=== PATIENT | female | born 1965 | race Caucasian/White ===

== ENCOUNTER 2024-09-12 14:30 | Outpatient (AMB) | payer OTHER, SELFPAY ==
--- OUTSIDE RECORDS SUMMARY | 2024-09-12 14:34 | XMS_ITS | Clinical Summary ---
Author Organization [facility] Address [address] [place] [address] Care Team Providers Care Welfare Specialist Name Role Phone Kamlesh Smith MD Primary Care Provider Unavailab le Allergies Active Allergy Reactions Criticality Noted Date Comments Codeine 10/23/2015 Hydrocodone-Acetaminophen 10/23/2015 Oxycodone-Acetaminophen 09/10/2015 Other reaction(s): itching, Unknown Medications Medication Sig Dispensed Refills Start Date End Date Status albuterol 108 (90 Base) MCG/ACT inhaler Inhale 1 puff into the lungs. 0 02/01/2022 Active aspirin (Aspirin Adult Low Dose) 81 MG EC tablet 1 tablet 0 02/01/2022 Active cloNIDine (CATAPRES) tablet 0.1 mg 1 tablet 0 09/01/2021 Active DULoxetine (CYMBALTA) DR capsule 30 mg Take 1 capsule (30 mg total) by mouth daily. 0 01/27/2022 Active empagliflozin (Jardiance) 10 MG tablet 1 tablet 0 Active fluticasone (FLONASE) 50 MCG/ACT nasal spray spray or apply 1 spray inside Nose. 0 02/01/2022 Active gabapentin (NEURONTIN) 300 MG capsule 1 tablet 0 Active levothyroxine (SYNTHROID) tablet 200 mcg 1 tablet in the morning on an empty stomach 0 10/06/2021 Active LORazepam (ATIVAN) 0.5 MG tablet 1 tablet at bedtime as needed 0 Active losartan (COZAAR) 100 MG tablet 1 tablet 0 02/01/2022 Active metFORMIN (GLUCOPHAGE) tablet 500 mg 1 tablet with a meal 0 02/04/2021 Active metoprolol succinate (TOPROL-XL) 24 hr tablet 100 mg 1 tablet 0 02/01/2022 Active Multiple Vitamin (Multivitamin) TABS Take 1 tablet by mouth daily. 0 01/31/2022 Active omeprazole (PriLOSEC) 40 MG capsule 1 capsule 30 minutes before morning meal 0 Active phentermine 15 MG capsule 1 capsule 0 03/10/2021 Active Semaglutide, 1 MG/DOSE, (Ozempic, 1 MG/DOSE,) 4 MG/3ML SOPN INJECT 1MG ONCE A WEEK 0 Active azelastine (OPTIVAR) 0.05 % ophthalmic solution Place 1 drop into both eyes 2 (two) times a day. 0 08/31/2022 Active fluticasone (FLONASE) 50 MCG/ACT nasal spray spray or apply 1 spray inside Nose. 0 08/31/2022 Active tirzepatide (Mounjaro) 2.5mg injection pen (SAMPLE) Inject 0.5 mL (2.5 mg total) under the skin. 0 Active Active Problems Problem Noted Date Diagnosed Date Microcytic anemia 02/04/2022 Social History Tobacco Use Types Packs/Day Years Used Date Smoking Tobacco: Some Days Smokeless Tobacco: Never Alcohol Use Standard Drinks/Week Comments Yes 0 (1 standard drink = 0.6 oz pur e alcohol) Social Sex and Gender Information Value Date Recorded Sex Assigned at Female 02/16/2022 3:02 PM EDT Gender Identity Not on file Sexual Orientation Not on file Job Start Date Occupation Industry Not on file Not on file Not on file Last Filed Vital Signs Vital Sign Reading Time Taken Comments Blood Pressure 146/84 07/24/2023 11:32 AM EDT Pulse 80 07/24/2023 11:32 AM EDT Temperature 36.7 ??C (98.1 ??F) 07/24/2023 11:32 AM E DT Respiratory Rate 20 11/04/2022 9:49 AM EDT Oxygen Saturation 98% 07/24/2023 11:32 AM EDT Inhaled Oxygen Concentration - - Weight 89.4 kg (197 lb) 07/24/2023 11:32 AM EDT Height - - Body Mass Index - - Plan of Treatment Health Maintenance Due Date Last Done Comments Hepatitis B Vaccines (1 of 3 - 3-dose series) 1966 Hepatitis C Screening 1966 COVID-19 Vaccine (#1) 04/20/1967 Depression Screening 1978 Preventative Health Evaluation 1984 Tobacco Cessation Counseling 1984 Cervical Cancer Screening (Pap Smear) 10/20/1987 Colon Cancer Screening (Colonoscopy) 10/20/2011 Breast Cancer Screening (Mammogram) 2016 Shingrix-Zoster Vaccine (1 o f 2) 2016 Pneumococcal Vaccine (2 of 2 - PCV) 02/18/2018 02/18/2017, 07/17/2012 Influenza Vaccine (#1) 2023 9, 02/18/2017, 01/15/2010 DTap / Tdap / Td (2 - Td or Tdap) 09/09/2025 09/10/2015 RSV Ped < 20 months Aged Out No longe r eligible based on patient's age to complete this topic Care Teams Welfare Specialist Relationship Specialty Start Date End Date Kamlesh Smith MD PCP - General Internal Medicine 01/21/22
--- NOTE | 2024-09-12 14:55 | HO.NEPHOV ---
Vital Signs 09/12/24 15:02 Height 5 ft Weight 137 lb BMI 26.8 BP 130/80 Blood Pressure Location Lt brachial Position Sitting Pulse 81 Pulse Source Pulse Oximeter Pulse Oximetry (%) 100 Oxygen Delivery Method Room Air Intake Visit Reasons: ENP: Accelerated Hypertension-Conf Digital Data Analyst Required: No Accompanied by: Self / Same As Patient Allergies acetaminophen [Percocet] Allergy (Unknown, Verified 09/12/24 15:02) Unknown codeine Allergy (Unknown, Verified 09/12/24 15:02) Unknown hydrocodone Allergy (Unknown, Verified 09/12/24 15:02) Unknown oxycodone [Percocet] Allergy (Unknown, Verified 09/12/24 15:02) Unknown Seasonal Allergies Allergy (Unknown, Verified 09/12/24 15:02) Unknown HPI Comments Details: I had the privilege of seeing Johanna in consultation for labile hypertension. She has been hypertensive for a long time and is on multiple anti hypertensive medications for some time which was recently changed again for better BP control. She is not a diabetic and denies having CAD, CKD, carotid stenosis, CHF, CVA or PAD. She denies MICKY, hypokalemia, uncontrolled thyroid disorders or hypercalcemia. She denies taking excess sodium in the diet or excess NSAID's. She does not have any palpitations or orthostatic symptoms. She claims to be compliant with medications. She does not monitor her BP closely at home. She has strong family H/O hypertension. [facility] Medical History (Updated 09/12/24 @ 15:16 by Lew Johns MD) Degenerative joint disease Seasonal allergies Asthma Depression Arthritis Anxiety Hyperlipidemia Hypothyroidism Hypertension Bipolar disorder Type 2 diabetes mellitus without complication Nausea & vomiting Microcytic anemia Palpitations Surgical History Hx of tubal ligation H/O reduction mammoplasty H/O abdominal surgery Family History Mother Diabetes Hypertension Hyperlipidemia Thyroid disease Social History (Updated 09/12/24 @ 14:56 by Josefina Kenny MA) Alcohol intake: current Comment: Socially Patient Tobacco Use Status: Current someday Tobacco user Review of Systems Const All systems reviewed & are unremarkable except as noted in HPI and below Physical Exam Vital Signs: Last Vital Signs Pulse 81 09/12/24 15:02 BP 130/80 09/12/24 15:02 Pulse Ox 100 09/12/24 15:02 Oxygen Delivery Method Room Air 09/12/24 15:02 BMI result Body Mass Index 26.8 Const General: comfortable and no acute distress Orientation/consciousness: patient oriented x3 HEENT Head: Yes normocephalic Mouth: Normal oral and palatal mucosa present Eyes EOM: EOMs intact bilaterally Neck Neck: Yes supple Resp Auscultation: clear to auscultation bilaterally Cardio Jugular venous distension: no JVD Rate: regular rate GI Palpation (GI): Soft to palpation Auscultation: normal bowel sounds General: Yes no CVA tenderness Back/Spine/Pelvis Back: no CVA tenderness Skin General skin exam: no rashes or lesions noted Neuro General: patient oriented x3 and moves all extremities Extrem General: Yes no pedal edema Results Reviewed Nephrology Results: No Data to Display Assessment & Plan Assessment & Plan (1) Labile hypertension: Code(s): R09.89 - Other specified symptoms and signs involving the circulatory and respiratory systems Category: Medical Plan Low sodium diet; Good hydration; Minimize NSAID's 24 hour Ambulatory blood pressure ordered Renin, Aldosterone, cortisol and metanephrines ordered Doppler of renal arteries ordered; C/W current medn for now No proteinuria, retinopathy, LVH or known renal dysfunction All these were explained in detail; Further management is pending data Orders: Orders AMB 24 HR B/P Monitor PLACEMENT Today R0 - Other specified symptoms and signs involving the circulatory and respiratory systems Aldost/Renin Today R0. - Other specified symptoms and signs involving the circulatory and respiratory systems Creatinine Today R09. - Other specified symptoms and signs involving the circulatory and respiratory systems Electrolytes Today R0. - Other specified symptoms and signs involving the circulatory and respiratory systems US renal doppler 2 Weeks R0. - Other specified symptoms and signs involving the circulatory and respiratory systems Renin Today R09. - Other specified symptoms and signs involving the circulatory and respiratory systems Aldosterone Today R09. - Other specified symptoms and signs involving the circulatory and respiratory systems Cortisol Random Today R0. - Other specified symptoms and signs involving the circulatory and respiratory systems Protein Creatinine Ratio, Ur Today R09. - Other specified symptoms and signs involving the circulatory and respiratory systems Blood Urea Nitrogen Today R09. - Other specified symptoms and signs involving the circulatory and respiratory systems US renal BI 2 Weeks R09.89 - Other specified symptoms and signs involving the circulatory and respiratory systems Metanephrines, Plasma Today R09.89 - Other specified symptoms and signs involving the circulatory and respiratory systems Coding Level of Care Code New Pt Level 4 (14912) Diagnoses Labile hypertension R09.89
[2024-09-12 15:02] VITALS: BP 130/80; PULSE 81; O2SAT 100; BMI 26.8
== END 2024-09-12 15:27 | disposition home or self-care (01) ==
LOC: HO.HKAS 14:31
PROVIDERS: PCP Internal Medicine; Visit Provider Internal Medicine Nephrology
DX: R09.89 Other specified symptoms and signs involving the circulatory and respiratory systems (principal)
CPT/HCPCS: 99204

== ENCOUNTER → 2024-09-12 14:30 | Outpatient (BNVA) | payer OTHER, SELFPAY | PROVIDERS: PCP Internal Medicine; Visit Provider Internal Medicine Nephrology | DX: I10 Essential (primary) hypertension (principal); Z79.899 Other long term (current) drug therapy | CPT/HCPCS: 99202 ==

== ENCOUNTER 2024-10-15 11:20 | Outpatient (REF) | payer OTHER, SELFPAY ==
[2024-10-15 18:55] LABS: Anion Gap 13 (12-20); Blood Urea Nitrogen 15 mg/dL (9-16); Carbon Dioxide 20 mmol/L (22-29); Chloride 114 mmol/L (96-108); Estimated Glomerular Filt Rate 46; Potassium 4.3 mmol/L (3.3-5.1); Sodium 143 mmol/L (135-145)
[2024-10-15 19:12] LABS: Creatinine Urine 69.02 mg/dL; Total Protein Urine Random < 7 mg/dL (<12)
[2024-10-15 19:15] LABS: Cortisol Random 6.5 ug/dL
[2024-10-28 01:08] LABS: Aldosterone/Renin Ratio 5.3 Ratio (0.9-28.9); Plasma Renin Activity 0.38 ng/mL/h (0.25-5.82)
== END 2024-10-15 11:21 | disposition home or self-care (01) ==
LOC: HO.HKASLDS 11:20
PROVIDERS: PCP Internal Medicine; Visit Provider Internal Medicine Nephrology
DX: R09.89 Other specified symptoms and signs involving the circulatory and respiratory systems (principal)
CPT/HCPCS: 36415; 80051; 82088; 82533; 82565; 82570; 84156; 84244; 84520

== ENCOUNTER → 2024-10-16 11:01 | Outpatient (BNVA) | payer OTHER, SELFPAY | PROVIDERS: PCP Internal Medicine; Visit Provider Internal Medicine Nephrology | DX: Z45.018 Encounter for adjustment and management of other part of cardiac pacemaker (principal) | CPT/HCPCS: 93786; 93788 ==

== ENCOUNTER 2024-11-07 13:08 | Outpatient (AMB) | payer OTHER, SELFPAY ==
--- NOTE | 2024-11-07 13:33 | HO.NEPHOV_ITS ---
Vital Signs 11/07/24 13:41 Height 5 ft Weight 148 lb 8 oz BMI 29.0 BP 168/98 H Blood Pressure Location Lt brachial Position Sitting Pulse 75 Pulse Source Pulse Oximeter Pulse Oximetry (%) 98 Oxygen Delivery Method Room Air Intake Visit Reasons: R/S 10/17/2024-Conf Client Manager Large Law Required: No Accompanied by: Self / Same As Patient Allergies acetaminophen (Percocet) Allergy (Unknown, Verified 11/07/24 13:41) Unknown codeine Allergy (Unknown, Verified 11/07/24 13:41) Unknown hydrocodone Allergy (Unknown, Verified 11/07/24 13:41) Unknown oxycodone (Percocet) Allergy (Unknown, Verified 11/07/24 13:41) Unknown Seasonal Allergies Allergy (Unknown, Verified 11/07/24 13:41) Unknown HPI Comments Details: I had the privilege of seeing Johanna in follow up for labile hypertension. She has been hypertensive for a long time and is on multiple anti hypertensive medications for some time which was recently changed again for better BP control. She is not a diabetic and denies having CAD, CKD, carotid stenosis, CHF, CVA or PAD. She denies MICKY, hypokalemia, uncontrolled thyroid disorders or hypercalcemia. She denies taking excess sodium in the diet or excess NSAID's. She does not have any palpitations or orthostatic symptoms. She claims to be compliant with medications. She does not monitor her BP closely at home. She has strong family H/O hypertension. [facility] Medical History (Updated 11/07/24 @ 13:37 by Lew Johns MD) Degenerative joint disease Seasonal allergies Asthma Depression Arthritis Anxiety Hyperlipidemia Hypothyroidism Hypertension Bipolar disorder Type 2 diabetes mellitus without complication Nausea & vomiting Microcytic anemia Palpitations Surgical History Hx of tubal ligation H/O reduction mammoplasty H/O abdominal surgery Family History Mother Diabetes Hypertension Hyperlipidemia Thyroid disease Social History (Updated 09/12/24 @ 14:56 by Josefina Kenny MA) Alcohol intake: current Comment: Socially Patient Tobacco Use Status: Current someday Tobacco user Review of Systems Const All systems reviewed & are unremarkable except as noted in HPI and below Physical Exam Const General: comfortable and no acute distress Orientation/consciousness: patient oriented x3 HEENT Head: Yes normocephalic Mouth: Normal oral and palatal mucosa present Eyes EOM: EOMs intact bilaterally Neck Neck: Yes supple Resp Auscultation: clear to auscultation bilaterally Cardio Jugular venous distension: no JVD Rate: regular rate GI Palpation (GI): Soft to palpation Auscultation: normal bowel sounds General: Yes no CVA tenderness Back/Spine/Pelvis Back: no CVA tenderness Skin General skin exam: no rashes or lesions noted Neuro General: patient oriented x3 and moves all extremities Extrem General: Yes pedal edema Results Reviewed Nephrology Results: Sodium, (135-145) 143 mmol/L 10/15/24 Potassium, (3.3-5.1) 4.3 mmol/L 10/15/24 Chloride, (96-108) 114 mmol/L H 10/15/24 Carbon Dioxide, (22-29) 20 mmol/L L 10/15/24 BUN, (9-16) 15 mg/dL 10/15/24 Creatinine, (0.5-1.4) 1.21 mg/dL 10/15/24 Urine Creatinine 69.02 mg/dL 10/15/24 Protein/Creatinin Ratio TNP 10/15/24 Assessment & Plan Assessment & Plan (1) Labile hypertension: Code(s): R09.89 - Other specified symptoms and signs involving the circulatory and r espiratory systems Category: Medical (2) CKD stage 3a, GFR 45-59 ml/min: Code(s): N18.31 - Chronic kidney disease, stage 3a Category: Medical Plan Low sodium diet; Good hydration; Minimize NSAID's 24 hour Ambulatory blood pressure reviewed Renin, Aldosterone, cortisol reviewed Doppler of renal arteries not done yet Discontinued Nebivilol; D/C ed Amlodipine Started Carvedilol 12.5 mg bid & Chlorthalidone 12.5 mg daily No proteinuria, retinopathy, LVH or known renal dysfunction All these were explained in detail; Further management is pending data Orders: Orders Creatinine 2 Weeks N18.31 - Chronic kidney disease, stage 3a, R09.89 - Other specified symptoms and signs involving the circulatory and respiratory systems Blood Urea Nitrogen 2 Weeks N18.31 - Chronic kidney disease, stage 3a, R09.89 - Other specified symptoms and signs involving the circulatory and respiratory systems TSH reflex Free T4 2 Weeks N18.31 - Chronic kidney disease, stage 3a, R09.89 - Other specified symptoms and signs involving the circulatory and respiratory systems Metanephrines, Plasma 2 Weeks N18.31 - Chronic kidney disease, stage 3a, R09.89 - Other specified symptoms and signs involving the circulatory and respiratory systems Electrolytes 2 Weeks N18.31 - Chronic kidney disease, stage 3a, R09.89 - Other specified symptoms and signs involving the circulatory and respiratory systems Medications: New carvedilol must administer with a meal/food 12.5 mg PO BID 180 tabs 3RF 90 days chlorthalidone 12.5 mg (1/2 x 25 mg) PO DAILY 45 tabs 3RF 90 days Coding Level of Care Code Est Pt Level 4 (50171) Diagnoses Labile hypertension R09.89 CKD stage 3a, GFR 45-59 ml/min N18.31
--- OUTSIDE RECORDS SUMMARY | 2024-11-07 13:38 | XMS_ITS | Encounter Summary ---
Author Organization [facility] Address [address] [place] [address] Care Team Providers Care [facility] Director Name Role Phone Unavailable Primary Care Provider Unavailabl e Encounter Details Date Type Department Care Team (Latest Contact Info) Description 06/26/2018 Abstract C CONVERSIONS Dental, Provider, DDS Social History Tobacco Use Types Packs/Day Years Used Date Smoking Tobacco: Never Assessed Comments Unknown Sex and Gender Information Value Date Recorded Sex Assigned at Female 02/21/2022 10:30 AM EDT Legal Sex Female 10:30 AM EDT Gender Identity Female 02/21/2022 10:30 AM EDT Sexual Orientation Straight 02/21/2022 10 :30 AM EDT documented as of this encounter Plan of Treatment Not on file documented as of this encounter Visit Diagnoses Not on filedocumented in this encounter
--- OUTSIDE RECORDS SUMMARY | 2024-11-07 13:38 | XMS_ITS | Clinical Summary ---
Author Organization [facility] Address [address] [place] [address] Phone Care Team Providers Care Auto Body Customizer Name Role Phone Kamlesh Smith MD Primary Care Provider [phone] Allergies Active Allergy Reactions Criticality Noted Date Comments Codeine 10/23/2015 Hydrocodone-Acetaminophen 10/23/2015 Oxycodone-Acetaminophen 09/10/2015 Medications biotin 1 mg tablet Take 1 tablet (1 mg total) by mouth 1 (one) time each day. 02/16/20 19 Active blood-glucose meter kit Check twice a day 02/02/20 22 Active gabapentin (NEURONTIN) 600 mg tablet Take 1 tablet (600 mg total) by mouth 1 (one) time each day. 05/25/19 24 Active ergocalciferol (VITAMIN D-2) 1,250 mcg (50,000 unit) capsule Take 1 capsule (50,000 Units total) by mouth. 10/07/19 22 Active albuterol HFA (Ventolin HFA) 90 mcg/actuation inhaler INHALE 1 TO 2 PUFF INTO THE LUNGS EVERY 4 TO 6 HOURS NEEDED FOR COUGHING OR WHEEZING 04/12/20 22 Active fluticasone propionate (FLONASE) 50 mcg/actuation nasal spray spray or apply 1 spray inside Nose. 02/02/20 22 Active LORazepam (ATIVAN) 0.5 mg tablet 1 tablet at bedtime as needed Active polyethylene glycol (MIRALAX) 17 gram packet Take 17 g by mouth 1 (one) time each day. 14 each 1 04/25/19 25 Active meloxicam (MOBIC) 7.5 mg tablet Take 1 tablet (7.5 mg total) by mouth 1 (one) time each day. Active levothyroxine (SYNTHROID, LEVOTHROID) 150 mcg tablet Take 1 tablet (150 mcg total) by mouth 1 (one) time each day. 30 each 07/25/19 25 026 Active wheat dextrin (Benefiber Clear SF, dextrin,) 3 gram/3.5 gram powder in packet Take 4 g by mouth 1 (one) time each day. 30 packet 3 07/26/19 25 Active multivitamin tablet Take 1 tablet by mouth 1 (one) time each day. 90 each 1 07/26/19 25 025 Active lancets (eCurvTouch Delica Plus Lancet) 33 gauge by Other route 2 (two) times a day. 100 each 07/26/19 25 Active glucose blood test strip Use as instructed 100 each 07/26/19 25 Active amLODIPine (NORVASC) 5 mg tablet Take 1 tablet (5 mg total) by mouth 1 (one) time each day. 30 each 08/16/19 25 025 Active nebivoloL (Bystolic) 10 mg tablet Take 1 tablet (10 mg total) by mouth 1 (one) time each day. 30 each 08/16/19 25 026 Active doxepin (SINEquan) 10 mg/mL solution Take 0.5 mL (5 mg total) by mouth at bedtime as needed for sleep. 120 mL 3 09/07/19 25 Active tiZANidine (ZANAFLEX) 4 mg tablet Take 1 tablet (4 mg total) by mouth 1 (one) time each day if needed for muscle spasms. 30 tablet 1 09/20/19 25 Active losartan (COZAAR) 100 mg tablet Take 1 tablet (100 mg total) by mouth 1 (one) time each day. 90 each 10/04/19 25 025 Active tirzepatide (Mounjaro) 12.5 mg/0.5 mL injectionIndic ations:Over weight Inject 0.5 mL (12.5 mg total) under the skin every 7 (seven) days. 2 mL 2 10/31/19 25 025 Active Mounjaro 10 mg/0.5 mL injection ADMINISTER 10 MG UNDER THE SKIN EVERY 7 DAYS 2 mL 1 08/22/19 25 025 Discontinued tirzepatide, weight loss, (Zepbound) 12.5 mg/0.5 mL injectionIndic ations:Over weight Inject 0.5 mL (12.5 mg total) under the skin every 7 (seven) days. 2 mL 2 10/11/19 25 025 Discontinued Active Problems Problem Noted Date Diagnosed Date Palpitations 04/29/2022 Microcytic anemia 02/04/2022 Nausea and vomiting 01/09/2019 Type 2 diabetes mellitus wit hout complication ([facility] V24, [facility] V28) 10/12/2017 Bipolar disorder ([facility] V24, [facility] V28) 09/23 Hypertension 06/02/2017 Hypothyroidism 06/02/2017 Hyperlipidemia 06/02/2017 Anxiety 11/10/2016 Arthritis 11/10/2016 Degenerative joint disease (DJD) of hip 11/11/19 17 Overview (06/14/2023): knees Vitamin D deficiency 09/08/2016 Depression 09/08/2016 Asthma 09/08/2016 Seasonal allergies 06/09/2016 Encounters Date Type Department Care Team Description 10/14/2024 Telephone Bariatric Surgery [address] [phone] Vira Betancur MD prior authorization (Zepbound 12.5 MG) 10/10/2024 1:00 PM EDT Office Visit Bariatric Surgery [address] [phone] Vira Betancur MD Over weight (Primary Dx); Excess skin of breast 09/19/2024 2:00 PM EDT Office Visit Internal Medicine [address] [phone] Kamlesh Smith MD Lumbar radiculitis (Primary Dx) 09/19/2024 Telephone Internal Medicine [address] [phone] Kamlesh Smith MD Urinary Frequency 09/06/2024 10:00 AM EDT Consult Internal Medicine [facility] [address] [facility] [address] [place] [phone] Kamlesh Smith MD Preop examination (Primary Dx); Primary hypertension; Acquired hypothyroidism; Mild intermittent asthma without complication; Primary insomnia 08/19/2024 Telephone Internal Medicine [address] [phone] Kamlesh Smith MD Joseph: Fax alessandro 08/15/2024 3:45 PM EDT Office Visit Internal Medicine [address] [phone] Kamlesh Smith MD Accelerated hypertension (Primary Dx); Acquired hypothyroidism 08/13/2024 Telephone Internal Medicine [address] [phone] Kamlesh Smith MD Hypertension from Last 3 Months Immunizations Name Administration Dates Next Due Influenza Quadravalent, MDCK , 0.5ml, preservative free (Flucelvax) 6mo and older 02/15/2019 Influenza trivalent, 0.5mL, preservative free (Fluarix; FluLaval; Fluzone) ages 6mo and older (Afluria) 3 years and older 04/25/2024,07/17/2012 Influenza trivalent, with pr eservative (Fluzone; Afluria) 6mo and older 01/15/2010 Pneumococcal polysaccharide 23 valent (Pneumovax 23) 2yo and older 07/17/2012 Tdap Tetanus diptheria acell ular pertussis (Boostrix; Adacel) 7yo and older 09/10/2015 Surgical History Surgery Date Site/Laterality Comments OTHER SURGICAL HISTORY PROCEDURE: HISTORY OTHER; COMMENT: lap band BREAST REDUCTION PROCEDURE: [place] BREAST REDUCTION TUBAL LIGATION PROCEDURE: HISTORICAL TUBAL LIGATION ABDOMINAL SURGERY PROCEDURE: HISTORICAL ABDOMINAL SURGERY; COMMENT: abdominoplasty Medical History Medical History Date Comments Anxiety 11/10/2016 DX:Anxiety Arthritis 11/10/2016 DX:Arthritis Asthma 09/08/2016 DX:Asthma Bipolar disorder (CMS/HCC V2 4, CMS/HCC V28) 10/12/2017 DX:Bipolar disorder (HCC) Degenerative joint disease (DJD) of hip 7 DX:Degenerative joint disease (DJD) of hip; COMMENT: knees Depression 09/08/2016 DX:Depression Hyperlipidemia 06/02/2017 DX:Hyperlipidemi a Hypertension 06/02/2017 DX:Hypertension Hypothyroidism 06/02/2017 DX:Hypothyroidis m S/P bariatric surgery 09/08/2016 DX:S/P bar iatric surgery; COMMENT: Lap band Seasonal allergies 06/09/2016 DX:Seasonal a llergies Type 2 diabetes mellitus wit hout complication ([facility] V24, [facility] V28) 10/12/2017 DX:Type 2 diab etes mellitus without complication (HCC) Stroke ([facility] V24, [facility] V28) 2010 Family History Medical History Relation Name Comments Diabetes Mother Hyperlipidemia Mother Hypertension Mother Thyroid disease Mother Relation Name Status Comments Father Mother Alive Social History Tobacco Use Types Packs/Day Years Used Date Smoking Tobacco: Every Day Cigarettes Smokeless Tobacco: Never Tobacco Cessation:Ready to Q uit: Not Asked; Counseling Given: Not Answered Alcohol Use Standard Drinks/Week Comments No 0 (1 standard drink = 0.6 oz pur e alcohol) Interpersonal Safety Answer Date Record ed Physical Abuse 05/14/2024 Verbal Abuse 05/14/2024 Comments No Sex and Gender Information Value Date Recorded Sex Assigned at Female 05/06/2024 11:55 AM EST Legal Sex Female 9:04 AM EST Gender Identity Female 05/06/2024 11:55 AM EST Sexual Orientation Straight 05/06/2024 11 :55 AM EST Obstetrics History Last Filed Vital Signs Vital Sign Reading Time Taken Comments Blood Pressure 149/87 10/10/2024 12:55 PM EDT Pulse 87 10/10/2024 12:55 PM EDT Temperature 36.2 C (97.1 F) 09/19/2024 2:05 PM EDT Respiratory Rate 18 05/26/2024 9:36 PM EST Oxygen Saturation 99% 09/19/2024 2:05 PM EDT Inhaled Oxygen Concentration - - Weight 65.8 kg (145 lb) 10/10/2024 12:55 PM EDT Height 149.9 cm (4' 11 ) 09/06/2024 9:54 AM EDT Body Mass Index 29.29 09/06/2024 9:54 AM EDT Plan of Treatment Upcoming Encounters Date Type Department Care Team (Late st Contact Info) Description 03/04/2025 2:30 PM EST [facility] [address] [place] [phone] Jean Smith MD [address] [place] [place] [phone] 04/10/2025 9:15 AM EST Office Visit Bariatric Surgery - [place] [address] [place] [phone] Vira Betancur MD [address] [place] [address] Health Maintenance Due Date Last Done Comments Diabetes: Annual Foot Exam 1976 Hepatitis B Vaccines (1 of 3 - 19+ 3-dose series) 1985 Zoster Vaccines (1 of 2) 1985 Cervical Cancer Screening: Pap Smear 10/20/1987 Pneumococcal Vaccine: 50+ Years (2 of 2 - PCV) 02/18/2018 02/18/2017, 10/28/2016, 07/17/2012 COVID-19 Vaccine (3 - Pfizer risk series) 11/04/2020 10/07/2020, 09/16/2020 Breast Cancer Screening 03/08/2021 03/08/2019 HIV Screening 04/02/2022 Medicare Annual Wellness Visit 04/02/2022 Social Influencers of Health Screening 04/02/2022 Depression Screening 04/24/2024 Diabetes: Blood Sugar Control Test (HGBA1C) 10/18/2024 04/19/2024, 02/14/2023 Influenza Vaccine (#1) 2024 , 02/15/2019, 02/18/2017, Additional history exists Diabetes: Annual Urine Albumin-Creatinine Ratio (uACR) 04/19/2025 04/19/2024, 06/13/2019 Diabetes: Annual Retina Eye Exam 06/26/2025 06/26/2024 Diabetes: Annual GFR (Glomerular Filtration Rate) 07/23/2025 07/23/2024, 05/26/2024, 04/19/2024, Additional history exists Hypertension/CHF/CAD Annual BMP Blood Test 07/23/2025 07/23/2024, 05/26/2024, 04/19/2024, Additional history exists DTaP,Tdap,and Td Vaccines (2 - Td or Tdap) 09/09/2025 09/10/2015 Cholesterol Screening (Lipid Panel) 04/19/2029 04/19/2024, 02/14/2023, 02/14/2023 Colorectal Cancer Screening: Colonoscopy 05/14/2034 05/14/2024 Hepatitis C Screening Completed 11/07/2019 HIB Vaccines Aged Out No longer eligi ble based on patient's age to complete this topic HPV Vaccines Aged Out No longer eligi ble based on patient's age to complete this topic Hepatitis A Vaccines Aged Out No long er eligible based on patient's age to complete this topic IPV Vaccines Aged Out No longer eligi ble based on patient's age to complete this topic MMR Vaccines Aged Out No longer eligi ble based on patient's age to complete this topic Meningococcal ACWY Vaccine Aged Out N o longer eligible based on patient's age to complete this topic Meningococcal B Vaccine Aged Out No l onger eligible based on patient's age to complete this topic RSV Immunization Patients Under 20 months Aged Out No longer eligible based on patient's age to complete this topic Varicella Vaccines Aged Out No longer eligible based on patient's age to complete this topic Procedures Procedure Name Priority Date/Time Associated Diagnosis Comments BASIC METABOLIC PANEL Routine 07/23/2024 10:16 AM EDT Lump of skin of back Hypothyroidism, unspecified type Primary hypertension EXTERNAL DIABETIC RETINA EYE EXAM 06/26/2024 COLONOSCOPY Routine 05/14/2024 2:37 PM EST Special screening for malignant neoplasms, colon MICROALBUMIN CREATININE URINE RATIO Routine 04/19/2024 7:58 AM EST Essential hypertension, malignant Hypothyroidism, adult Diabetes mellitus (CMS/HCC V24, CMS/HCC V28) HEMOGLOBIN A1C Routine 04/19/2024 7:58 AM EST Essential hypertension, malignant Hypothyroidism, adult Diabetes mellitus (CMS/HCC V24, CMS/HCC V28) LIPID PANEL WITH REFLEX TO DIRECT LDL Routine 04/19/2024 7:58 AM EST Essential hypertension, malignant Hypothyroidism, adult Diabetes mellitus (CMS/HCC V24, CMS/HCC V28) HEPATITIS C SCREENING Routine 11/07/2019 from Last 3 Months or Most Recently Relevant to Health Maintenance Results * (ABNORMAL) Basic metabolic panel (07/23/2024 10:16 AM EDT) Pathologist [facility] Sodium 144 133 - 145 mmol/L LAB CHEMISTRY METHOD 07/23/2024 2:53 PM [facility] Potassium 3.9 3.5 - 5.5 mmol/L LAB CHEMISTRY METHOD 07/23/2024 2:53 PM [facility] Chloride 114(H) 96 - 110 mmol/L LAB CHEMISTRY METHOD 07/23/2024 2:53 PM [facility] CO2 22 21 - 32 mmol/L LAB CHEMISTRY METHOD 07/23/2024 2:53 PM [facility] Anion Gap 8 3 - 11 LAB CHEMISTRY METHOD 07/23/2024 2:53 PM [facility] Glucose 70 70 - 100 mg/dL LAB CHEMISTRY METHOD 07/23/2024 2:53 PM [facility] BUN 20 5 - 25 mg/dL LAB CHEMISTRY METHOD 07/23/2024 2:53 PM [facility] Creatinine 0.99 0.50 - 1.10 mg/dL LAB CHEMISTRY METHOD 07/23/2024 2:53 PM [facility] eGFR 67 >=60 mL/min/1. 73m2 LAB CHEMISTRY METHOD 07/23/2024 2:53 PM [facility] Comment:Calculation based on the Chronic Kidney Disease Epidemiology Collaboration (CKD-EPI) equation refit without adjustment for race. BUN/Creatinine Ratio 20.2 LAB CHEMISTRY METHOD 07/23/2024 2:53 PM [facility] Calcium 9.4 8.5 - 10.5 mg/dL LAB CHEMISTRY METHOD 07/23/2024 2:53 PM EDT [facility] Blood Venous blood specimen / Unknown Venipuncture / Unknown 07/23/2024 10:16 AM EDT 07/23/2024 10:16 AM EDT Kirsty Stephens MD LAB BLOOD ORDERABLES Final Res ult [facility] [address] [place] [address], [place] [phone] * External Diabetic Retina Eye Exam Report (06/26/2024) Anatomical Region Laterality Modality Ultrasound us Provider [facility] US PROCEDURES Final Result * COLONOSCOPY Anesthesia - MAC; [facility] ENDOSCOPY (05/14/2024 2:37 PM EST) Anatomical Region Laterality Modality Other 05/14/2024 2:20 PM EST Impressions 05/14/2024 2:38 PM EST - One 2 mm polyp in the transverse colon, removed with a jumbo cold forceps. Resected and retrieved. - Diverticulosis in the entire examined colon. - The examination was otherwise normal on direct and retroflexion views. Recommendation: - Patient has a contact number available for emergencies. The signs and symptoms of potential delayed complications were discussed with the patient. Return to normal activities tomorrow. Written discharge instructions were provided to the patient. - Resume previous diet. - Continue present medications. - Await pathology results. - Repeat colonoscopy in 7-10 years for surveillance. Narrative 05/14/2024 2:[address] [facility] Patient Name: Keshia Gao Procedure Date: 05/14/2024 2:20 PM Date of : 1965 Age: 58 Gender: Female Note Status: Finalized Attending MD: Héctor Martin MD, Procedure Date No Time: 05/14/2024 Procedure: Colonoscopy Indications: Screening for colorectal malignant neoplasm Providers: Héctor Martin MD Referring MD: Gabo Hernandez MD Medicines: Monitored Anesthesia Care Complications: No immediate complications. Estimated Blood Loss: Estimated blood loss: none. Procedure: After I obtained informed consent, the scope was passed under direct vision. Throughout the procedure, the patient's blood pressure, pulse, and oxygen saturations were monitored continuously. The Colonoscope was introduced through the anus and advanced to the cecum, identified by appendiceal orifice and ileocecal valve. The colonoscopy was performed without difficulty. The patient tolerated the procedure well. The quality of the bowel preparation was good. Findings: A 2 mm polyp was found in the transverse colon. The polyp was sessile. The polyp was removed with a jumbo cold forceps. Resection and retrieval were complete. Many small and large-mouthed diverticula were found in the entire colon. The exam was otherwise without abnormality on direct and retroflexion views. Procedure Code(s): --- Professional --- 95614, Colonoscopy, flexible; with biopsy, single or multiple Diagnosis Code(s): --- Professional --- Z12.11, Encounter for screening for malignant neoplasm of colon D12.3, Benign neoplasm of transverse colon (hepatic flexure or splenic flexure) K57.30, Diverticulosis of large intestine without perforation or abscess without bleeding CPT copyright 2021 [employer]. All rights reserved. The codes documented in this report are preliminary and upon invoice coder review may be revised to meet current compliance requirements. MD Héctor Sigala MD 05/14/2024 2:38:15 PM This report has been signed electronically.Héctor Martin MD Number of Addenda: 0 Note Initiated On: 05/14/2024 2:20 PM Scope In: Scope Out: Endoscopy Department at [facility] - [address] [place] [phone] Procedure Note Héctor Martin MD - 05/14/2024 [facility] Patient Name: Keshia Gao Procedure Date: 05/14/2024 2:20 PM Date of : 1965 Age: 58 Gender: Female Note Status: Finalized Attending MD: Héctor Martin MD, Procedure Date No Time: 05/14/2024 Procedure: Colonoscopy Indications: Screening for colorectal malignant neoplasm Providers: Héctor Martin MD Referring MD: Gabo Hernandez MD Medicines: Monitored Anesthesia Care Complications: No immediate complications. Estimated Blood Loss: Estimated blood loss: none. Procedure: After I obtained informed consent, the scope was passed under direct vision. Throughout theprocedure, the patient's blood pressure, pulse, and oxygen saturations were monitored continuously. The Colonoscope was introduced through the anus and advanced to the cecum, identified by appendiceal orifice and ileocecal valve. The colonoscopy was performed without difficulty. The patient tolerated the procedure well. The quality of the bowel preparation was good. Findings: A 2 mm polyp was found in the transverse colon. The polyp was sessile. The polyp was removed with ajumbo cold forceps. Resection and retrieval werecomplete. Many small and large-mouthed diverticula were foundin the entire colon. The exam was otherwise without abnormality ondirect and retroflexion views. Procedure Code(s): --- Professional --- 51980, Colonoscopy, flexible; with biopsy, singleor multiple Diagnosis Code(s): --- Professional --- Z12.11, Encounter for screening for malignantneoplasm of colon D12.3, Benign neoplasm of transverse colon (hepatic flexure or splenic flexure) K57.30, Diverticulosis of large intestine without perforation or abscess without bleeding CPT copyright 2020 [employer]. All rights reserved. The codes documented in this report are preliminary and upon invoice coder reviewmay be revised to meet current compliance requirements. MD Héctor Sigala MD 05/14/2024 2:38:15 PM This report has been signed electronically.Héctor Martin MD Number of Addenda: 0 Note Initiated On: 05/14/2024 2:20 PM Scope In: Scope Out: Endoscopy Department at [facility] - [address] [place] [phone] IMPRESSION: - One 2 mm polyp in the transverse colon, removed with a jumbo cold forceps. Resected and retrieved. - Diverticulosis in the entire examined colon. - The examination was otherwise normal on directand retroflexion views. Recommendation: - Patient has a contact number available for emergencies. The signs and symptoms of potential delayed complications were discussed with thepatient. Return to normal activities tomorrow. Written discharge instructions were provided to thepatient. - Resume previous diet. - Continue present medications. - Await pathology results. - Repeat colonoscopy in 7-10 years [facility]. Gabo Hernandez MD GI~PROCEDURE ORDERABLES Final Re sult * Lipid panel with reflex to direct LDL (04/19/2024 7:58 AM EST) Cholesterol 178 0 - 200 mg/dL LAB CHEMISTRY METHOD 04/19/2024 10:12 AM EST [facility] Triglycerides 81 0 - 150 mg/dL LAB CHEMISTRY METHOD 04/19/2024 10:12 AM [facility] HDL 109 >=40 mg/dL LAB CHEMISTRY METHOD 04/19/2024 10:12 AM [facility] LDL Calculated 53 0 - 100 mg/dL LAB CHEMISTRY METHOD 04/19/2024 10:12 AM [facility] VLDL Cholesterol Greg 16.2 mg/dL LAB CHEMISTRY METHOD 04/19/2024 10:12 AM [facility] Non HDL Chol. (LDL+VLDL) 69 <145 mg/dL LAB CHEMISTRY METHOD 04/19/2024 10:12 AM [facility] Chol/HDL Ratio 1.6 0.0 - 4.4 LAB CHEMISTRY METHOD 04/19/2024 10:12 AM [facility] Blood Venous blood specimen / Unknown Venipuncture / Unknown 04/19/2024 7:58 AM EST 04/19/2024 7:58 AM EST Kamlesh Smith MD LAB BLOOD ORDERABLES Final Resul t [facility] [address] [place] [address], [place] [phone] * Microalbumin creatinine urine ratio (04/19/2024 7:58 AM EST) Pathologist [facility] Creatinine, Urine 143.0 mg/dL LAB CHEMISTRY METHOD 04/19/2024 10:30 AM EST [facility] Microalb, Ur 26.2 0.0 - 29.0 mg/L LAB CHEMISTRY METHOD 04/19/2024 10:30 AM EST [facility] Microalb/Creat Ratio 18 <30 mg/g creat LAB CHEMISTRY METHOD 04/19/2024 10:30 AM EST [facility] Urine Urine specimen obtained by clean catch procedure / Unknown Non-blood Collection / Unknown 04/19/2024 7:58 AM EST 04/19/2024 7:58 AM EST us Kamlesh Smith MD LAB URINE ORDERABLES Final Resul t Performing Organization Address City/[facility]/ZIP Co de Phone Number [facility] [address] [place] [address], [place] [phone] * Hemoglobin A1c (04/19/2024 7:58 AM EST) [facility] Hemoglobin A1C 4.9 <6.5 % LAB CHEMISTRY METHOD 04/19/2024 12:25 PM EST [facility] Mean Bld Glu Estim. 94 mg/dL LAB CHEMISTRY METHOD 04/19/2024 12:25 PM [facility] Blood Venous blood specimen / Unknown Venipuncture / Unknown 04/19/2024 7:58 AM EST 04/19/2024 7:58 AM EST us Kamlesh Smith MD LAB BLOOD ORDERABLES Final Resul t [facility] [address] [place] [address], [place] [phone] * Hepatitis C Screening (11/07/2019) Pathologist [facility] Hepatitis C Screening Negative us Historical Provider HEALTH MAINTENANCE Final Result from Last 3 Months or Most Recently Relevant to Health Maintenance Insurance [employer] Member Subscriber Plan / Payer (Ef fective 2022-Present) Name:KESHIA VALIENTE Relation to Subscriber:Self Name:Keshia Valiente Payer ID:[id number] Group ID:[id number] Type:Not on file Address: [address] [facility] [place] [address] Care Teams Auto Body Customizer Relationship Specialty Start Date End Date Kamlesh Smith MD [address] [place] [id number] PCP - General Internal Medicine 05/06/24
--- OUTSIDE RECORDS SUMMARY | 2024-11-07 13:38 | XMS_ITS | Clinical Summary ---
[facility] Address [address] [place] [address] Care Team Providers Care Disaster Recovery Coordinator Name Role Phone Kamlesh Smith MD Primary [...] 80 07/24/2023 11:32 AM EDT Temperature 36.7 C (98.1 F) 07/24/2023 11:32 AM EDT Respiratory Rate 20 11/04/2022 9:49 AM EDT [...] PCV) 02/18/2018 02/18/2017, 07/17/2012 Influenza Vaccine (#1) 2024 9, 02/18/2017, 01/15/2010 DTap / Tdap / Td (2 - Td or Tdap) 09/09/2025 09/10/2015 RSV Ped < 20 months Aged Out No longe r eligible based on patient's age to complete this topic Care Teams Disaster Recovery Coordinator Relationship Specialty Start Date End Date Kamlesh Smith MD PCP - General Internal Medicine 01/21/22
--- OUTSIDE RECORDS SUMMARY | 2024-11-07 13:38 | XMS_ITS | Patient Health Record ---
Author Organization [employer] Address [address] [place] [address] Support Name Relationship Address Phone Johanna Garza Guarantor Unknown Allergies Allergen (clinical drug ingredient) Drug/Non Drug Allergy documented on EMR Reaction Allergy Type Onset Date Status acetaminophen / oxycodone Percocet Unknown Drug Allergy Active Reason For Referral No Information Medications Medication SIG (Take, Route, Frequency, Duration) Notes Start Date End Date Status Gabapentin 300 MG 1 tablet Orally Once a day Active cloNIDine HCl 0.1 MG 1 tablet Orally twi ce a day Active Losartan Potassium 100 MG 1 tablet Orall y Once a day Active LORazepam 0.5 MG 1 tablet at bedtime as needed Orally Once a day Active Metoprolol Succinate ER 100 MG 1 tablet Orally Once a day Active Levothyroxine Sodium 200 MCG 1 tablet in the morning on an empty stomach Orally Once a day Active Omeprazole 40 MG 1 capsule 30 minutes before morning meal Orally Once a day Active Multivitamin - 1 tablet Orally Once a day Active metFORMIN HCl 500 MG TAKE 1 TABLET BY [facility] TWICE DAILY WITH A MEAL; Duration: 30 Active Jardiance 10 MG 1 tablet Orally Once a day; Duration: 30 day(s) Active Zofran 4 MG 1 tablet Orally bid; Duration: 7 days Active Phentermine HCl 15 MG 1 capsule Orally O nce a day; Duration: 30 days 03/10/2021 Active Biotin Active Atorvastatin Calcium 20 MG 1 tablet Oral ly Once a day; Duration: 30 day(s) 02/04/2021 Active Aspirin Adult Low Dose 81 MG 1 tablet Or ally Once a day Active Ferrous Sulfate ER 142 (45 Fe) MG 1 tablet Orally Once a day; Duration: 30 day(s) 02/04/2021 Active Ozempic (1 MG/DOSE) 4 MG/3ML INJECT 1MG ONCE A WEEK; Duration: 28 Active Social History Tobacco Use: Social History Observation Description Date Details (start date - stop date) Never Smoker NA - NA Tobacco Use/Smoking Question Answer Notes Are you a nonsmoker Alcohol Screen (Audit-C) Question Answer Notes Did you have a drink contain ing alcohol in the past year? Yes How often did you have a dri nk containing alcohol in the past year? Monthly or less (1 point) Points 1 Interpretation Negative Problems Problem Type SNOMED Code ICD Code Onset Dates Problem Status W/U Status Risk Notes Problem Iron deficiency anemia (39341678) Iron deficiency anemia, unspecified (D50.9) Active confirmed Problem Hypothyroidism (00401406) Hypothyroidism, unspecified (E03.9) Active confirmed Problem Disorder due to type 2 diabetes mellitus (997614927) Type 2 diabetes mellitus with unspecified complications (E11.8) Active confirmed Problem Morbid obesity (disorder) (890412789) Morbid (severe) obesity due to excess calories (E66.01) Active confirmed Problem Generalized anxiety disorder (85794297) Generalized anxiety disorder (F41.1) Active confirmed Problem Gastro-esophageal reflux disease without esophagitis (206549306) Gastro-esophagea l reflux disease without esophagitis (K21.9) Active confirmed Problem Essential hypertension (53584829) Essential (primary) hypertension (I10) Active confirmed Plan Of Treatment No Information Insurance Providers Payer Name Payer Address Payer Phone Subscriber Number Group Number Insured Name Patient Relationship to Insured Coverage Start Date Coverage End Date Medicare [address] [place] [phone] [id number] Johanna Garza Self - patient is the insured Medicaid of [place] [address] [place] [address] [id number] Johanna Garza Self - patient is the insured Medical (General) History Medical History History ICD Code GERD hypothyroidism hypertension generalized anxiety disorder Surgical History Surgery Date(Month/Year) lap band by Dr. Betancur gastric bypass by Dr. Betancur left ankle surgery 02/2021
[2024-11-07 13:41] VITALS: BP 168/98; PULSE 75; O2SAT 98; BMI 29.0
== END 2024-11-07 13:58 | disposition home or self-care (01) ==
LOC: HO.HKAS 13:08
PROVIDERS: PCP Internal Medicine; Visit Provider Internal Medicine Nephrology
DX: R09.89 Other specified symptoms and signs involving the circulatory and respiratory systems (principal); N18.31 Chronic kidney disease, stage 3a
CPT/HCPCS: 99214

== ENCOUNTER → 2024-11-07 13:08 | Outpatient (BNVA) | payer OTHER, SELFPAY | PROVIDERS: PCP Internal Medicine; Visit Provider Internal Medicine Nephrology | DX: N18.31 Chronic kidney disease, stage 3a (principal); R09.89 Other specified symptoms and signs involving the circulatory and respiratory systems | CPT/HCPCS: 99212 ==

== ENCOUNTER 2025-02-04 09:56 | Outpatient (AMB) | payer OTHER, SELFPAY ==
--- NOTE | 2025-02-04 10:21 | HO.NEPHOV ---
Vital Signs 02/04/25 10:22 Height 5 ft Weight 134 lb BMI 26.2 BP 154/100 H Blood Pressure Location Lt brachial Position Sitting Pulse 90 Pulse Source Pulse Oximeter Pulse Oximetry (%) 97 Oxygen Delivery Method Room Air Intake Visit Reasons: F/U Automotive Specialty Technician Required: Yes Automotive Specialty Technician Language: Monologist Services: Automotive Specialty Technician Offered & Declined ([facility] Automotive Specialty Technician services refused ) Accompanied by: Self / Same As Patient Allergies acetaminophen (Percocet) Allergy (Unknown, Verified 02/04/25 10:22) Unknown codeine Allergy (Unknown, Verified 02/04/25 10:22) Unknown hydrocodone Allergy (Unknown, Verified 02/04/25 10:22) Unknown oxycodone (Percocet) Allergy (Unknown, Verified 02/04/25 10:) Unknown Seasonal Allergies Allergy (Unknown, Verified 02/04/25 10:22) Unknown HPI Comments Details: I had the privilege of seeing Johanna in follow up for labile hypertension. She has been hypertensive for a long time and is on multiple anti hypertensive medications for some time which was recently changed again for better BP control. She is not a diabetic and denies having CAD, CKD, carotid stenosis, CHF, CVA or PAD. She denies MICKY, hypokalemia, uncontrolled thyroid disorders or hypercalcemia. She denies taking excess sodium in the diet or excess NSAID's. She does not have any palpitations or orthostatic symptoms. She claims to be compliant with medications. She does not monitor her BP closely at home. She has strong family H/O hypertension. [facility] Medical History (Updated 11/07/24 @ 13:37 by Lew Johns MD) Degenerative joint disease Seasonal allergies Asthma Depression Arthritis Anxiety Hyperlipidemia Hypothyroidism Hypertension Bipolar disorder Type 2 diabetes mellitus without complication Nausea & vomiting Microcytic anemia Palpitations Surgical History Hx of tubal ligation H/O reduction mammoplasty H/O abdominal surgery Family History Mother Diabetes Hypertension Hyperlipidemia Thyroid disease Social History Alcohol intake: current Comment: Socially Patient Tobacco Use Status: Current someday Tobacco user Review of Systems Const All systems reviewed & are unremarkable except as noted in HPI and below Physical Exam Vital Signs: Last Vital Signs Pulse 90 02/04/25 10:22 BP 154/100 H 02/04/25 10:22 Pulse Ox 97 02/04/25 10:22 Oxygen Delivery Method Room Air 02/04/25 10:22 BMI result Body Mass Index 26.2 Const General: comfortable and no acute distress Orientation/consciousness: patient oriented x3 HEENT Head: Yes normocephalic Mouth: Normal oral and palatal mucosa present Eyes EOM: EOMs intact bilaterally Neck Neck: Yes supple Resp Auscultation: clear to auscultation bilaterally Cardio Jugular venous distension: no JVD Rate: regular rate GI Palpation (GI): Soft to palpation Auscultation: normal bowel sounds General: Yes no CVA tenderness Back/Spine/Pelvis Back: no CVA tenderness Skin General skin exam: no rashes or lesions noted Neuro General: patient oriented x3 and moves all extremities Extrem General: Yes no pedal edema Results Reviewed Nephrology Results: Sodium, (135-145) 143 mmol/L 10/15/24 Potassium, (3.3-5.1) 4.3 mmol/L 10/15/24 Chloride, (96-108) 114 mmol/L H 10/15/24 Carbon Dioxide, (22-29) 20 mmol/L L 10/15/24 BUN, (9-16) 15 mg/dL 10/15/24 Creatinine, (0.5-1.4) 1.21 mg/dL 10/15/24 Urine Creatinine 69.02 mg/dL 10/15/24 Protein/Creatinin Ratio TNP 10/15/24 Assessment & Plan Assessment & Plan (1) CKD stage 3a, GFR 45-59 ml/min: Code(s): N18.31 - Chronic kidney disease, stage 3a Category: Medical (2) Labile hypertension: Code(s): R09.89 - Other specified symptoms and signs involving the circulatory and respiratory systems Category: Medical Plan Low sodium diet; Good hydration; Minimize NSAID's 24 hour Ambulatory blood pressure reviewed Renin, Aldosterone, cortisol reviewed Doppler of renal arteries not done yet Increased Carvedilol to 25 mg bid C/W Chlorthalidone 12.5 mg daily No proteinuria, retinopathy, LVH. Renal function stable All these were explained in detail; F/U given Medications: Changed From carvedilol must administer with a meal/food 12.5 mg PO BID 90 days 180 tabs 3RF To carvedilol must administer with a meal/food 25 mg PO BID 180 tabs 3RF 90 days Coding Level of Care Code Est Pt Level 4 (18244) Diagnoses CKD stage 3a, GFR 45-59 ml/min N18.31 Labile hypertension R09.89
[2025-02-04 10:22] VITALS: BP 154/100; PULSE 90; O2SAT 97; BMI 26.2
--- OUTSIDE RECORDS SUMMARY | 2025-02-04 11:23 | XMS_ITS | Encounter Summary ---
Author Organization [facility] Address [address] [place] [address] Care Team Providers Care Overhead Cleaner Name Role Phone Unavailable Primary Care Provider Unavailabl e Encounter Details Date Type Department Care Team (Latest Contact Info) Description 12/16/2020 Abstract HHC CONVERSIONS Dental, Provider, DDS Social History Tobacco [...]
--- OUTSIDE RECORDS SUMMARY | 2025-02-04 11:23 | XMS_ITS | Clinical Summary ---
Author Organization [facility] Address [address] [place] [phone] Phone Care Team Providers Care Tobacco Feeder Catcher Name Role Phone Pcp, Unknown Primary Care Provider Unavailabl e Allergies Active Allergy Reactions Criticality Noted Date Comments Codeine 10/23/2015 Hydrocodone-Acetaminophen 10/23/2015 Oxycodone-Acetaminophen Unknown 09/10/2015 Other reaction(s): itching, Unknown Medications biotin 1 mg Cap Biotin Acti ve ondansetron (ZOFRAN) 4 MG tablet 1 tablet Orally bid for 7 days Active VENTOLIN HFA 90 mcg/actuation inhaler INHALE 2 PUFFS INTO THE LUNGS EVERY 6 HOURS NEEDED FOR COUGH OR WHEEZING 10/13/2023 Active aspirin 81 MG EC tablet 1 tablet Orally Once a day Active cloNIDine HCL (CATAPRES) 0.1 MG tablet Take 0.1 mg by mouth 2 (two) times a day. 02/24/2023 Active DULoxetine (CYMBALTA) 30 MG capsule Take 1 capsule by mouth every morning. 12/24/2023 Active empagliflozin (JARDIANCE) 10 mg tablet 1 tablet. Active fluticasone propionate (FLONASE) 50 mcg/actuation nasal spray 1 spray by Nasal route. 08/31/2022 Active furosemide (LASIX) 20 MG tablet Take 1 tablet by mouth every morning. 10/13/2023 Active gabapentin (NEURONTIN) 300 MG capsule 300 mg. Active levothyroxine (SYNTHROID, LEVOTHROID) 200 MCG tablet 1 tablet in the morning on an empty stomach Orally Once a day Active Social History Tobacco Use Types Packs/Day Years Used Date Smoking Tobacco: Never Smokeless Tobacco: Never Tobacco Cessation:Counseling Given: Not Answered Alcohol Use Standard Drinks/Week Comments Yes 1 (1 standard drink = 0.6 oz pur e alcohol) Education Answer Date Recorded Are you interested in more education? Not on medhat e 11/06/2023 Are you concerned about learning? Not on file 11/06/2023 No 11/06/2023 No 11/06/2023 Digital Access Answer Date Recorded No 11/06/2023 No 11/06/2023 Reliable internet access at home? Not on file 11/06/2023 Device with a working camera? Not on file Comments Unknown Sex and Gender Information Value Date Recorded Sex Assigned at Not on file Legal Sex Female 9:25 AM EDT Gender Identity Not on file Sexual Orientation Not on file Last Filed Vital Signs Vital Sign Reading Time Taken Comments Blood Pressure 158/98 12/28/2023 11:34 AM EDT Pulse 73 12/28/2023 11:34 AM EDT Temperature - - Respiratory Rate - - Oxygen Saturation - - Inhaled Oxygen Concentration - - Weight 78.9 kg (174 lb) 12/28/2023 11:34 AM EDT Height 149.9 cm (4' 11 ) 12/28/2023 11:34 AM EDT Body Mass Index 35.14 12/28/2023 11:34 AM EDT Plan of Treatment Health Maintenance Due Date Last Done Comments Adult Td,Tdap Booster 1966 TSH LEVEL 1966 DEPRESSION SCREENING 1978 HEPATITIS C SCREENING 1984 HIV ONE-TIME SCREENING (18-6 5 YEARS) 1984 PAP SMEAR 10/20/1987 SCREENING FOR DIABETES 2001 MAMMOGRAM 2006 COLOGUARD 10/20/2011 COLONOSCOPY 10/20/2011 COLORECTAL CANCER SCREENING 10/20/2011 FIT TEST 10/20/2011 FOBT 10/20/2011 SIGMOIDOSCOPY 10/20/2011 VIRTUAL COLONOSCOPY 10/20/2011 PNEUMOCOCCAL VACCINES (50+ y ears) (1 of 1 - PCV) 2016 RSV VACCINE (1 - Risk 50-74 years 1-dose series) 2016 ZOSTER VACCINES (1 of 2) 2016 INFLUENZA VACCINE (#1) 2024 COVID-19 VACCINE (1 - 2024-2 6 season) 2024 LIPID PANEL 02/15/2028 02/14/2023 SMOKING STATUS SCREENING (On ce After 26 Yrs) Completed 12/28/2023 HEPATITIS A VACCINES Aged Out No long er eligible based on patient's age to complete this topic HIB VACCINES Aged Out No longer eligi ble based on patient's age to complete this topic MENINGOCOCCAL VACCINES (ACWY) Aged Out No longer eligible based on patient's age to complete this topic MENINGOCOCCAL VACCINES (B) Aged Out N o longer eligible based on patient's age to complete this topic Medical Devices Not on file Insurance [place] [id number] [facility] ONE CARE MEDICARE REPLACEMENT MEDICARE PART A & B [facility] CARE MEDICARE REPLACEMENT MEDICARE PART A & B [facility] MEDICARE REPLACEMENT MEDICARE PART A & B CARE MEDICARE REPLACEMENT MEDICARE PART A & B [facility] ONE CARE MEDICARE REPLACEMENT MEDICARE PART A & B [facility] ONE CARE MEDICARE REPLACEMENT Care Teams Tobacco Feeder Catcher Relationship Specialty Start Date End Date Pcp, Unknown PCP - General 11/06/23 Additional Source Comments The information contained in this document represents components of the legal health record. It is not the complete legal health record.[facility]
--- OUTSIDE RECORDS SUMMARY | 2025-02-04 11:23 | XMS_ITS | Clinical Summary ---
Author Organization [facility] Address [address] [place] [address] Care Team Providers Care Transition Mgr Name Role Phone Kamlesh Smith MD Primary [...] age to complete this topic Care Teams Transition Mgr Relationship Specialty Start Date End Date Kamlesh Smith MD PCP - General Internal Medicine 01/21/22
--- OUTSIDE RECORDS SUMMARY | 2025-02-04 11:23 | XMS_ITS | Encounter Summary ---
Author Organization [employer] [facility] Address [address] [facility] [address] [place] [address] Care Team Providers Care Psychometrician Name Role Phone Unavailable Primary Care Provider [...]
--- OUTSIDE RECORDS SUMMARY | 2025-02-04 11:23 | XMS_ITS | Encounter Summary ---
Author Organization [employer] Address [address] [place] [address] Care Team Providers Care Ocean Export Account Manager Name Role Phone Kamlesh Smith MD Primary Care Provider [phone] Encounter Details Date Type Department Care Team (Late st Contact Info) Description 01/21/2025 Telephone Bariatric Surgery [facility] [address] [address] Vira Betancur MD [address] [place] [phone] Social History Tobacco Use Types Packs/Day Years Used Date Smoking Tobacco: Every Day Cigarettes Smokeless Tobacco: Never Alcohol Use Standard Drinks/Week Comments No 0 (1 standard drink = 0.6 oz pur e alcohol) Interpersonal Safety Answer Date Record ed Physical Abuse Unrecognized value 05/14/2024 Verbal Abuse Unrecognized value 05/14/2024 Comments No Sex and Gender Information Value Date Recorded Sex Assigned at Female 05/06/2024 11:55 AM EST Legal Sex Female 9:04 AM EST Gender Identity Female 05/06/2024 11:55 AM EST Sexual Orientation Straight 05/06/2024 11 :55 AM EST documented as of this encounter Functional Status * Are you deaf or do you have serious difficulty hearing? Answer Date of Assessment Author No 05/26/2024 10:27 PM EST Arely Licea RN * Are you blind or do you have serious difficulty seeing, even when wearing glasses? Answer Date of Assessment Author No 05/26/2024 10:27 PM EST Arely Licea RN * Do you have serious difficulty walking or climbing stairs? Answer Date of Assessment Author No 05/26/2024 10:27 PM Arely Isaacs RN * Do you have serious difficulty dressing or bathing? Answer Date of Assessment Author No 05/26/2024 10:27 PM Arely Isaacs RN * Because of a physical, mental, or emotional condition, do you have serious difficulty doing errandsalone such as visiting the doctor? Answer Date of Assessment Author No 05/26/2024 10:27 PM Arely Isaacs RN documented as of this encounter Mental Status * Because of a physical, mental, or emotional condition, do you have serious difficulty concentrating, remembering, or making decisions? (5 years old or older) Answer Entry Date Author No 05/26/2024 10:27 PM Arely Isaacs RN documented in this encounter Progress Notes * Sveta Chin MA - 01/21/2025 8:57 AM EDT Doctor Pipe Patient called stating she is in a lot of pain and vomiting and nauseous when she eats. She wants to come in sooner and see Dr. Betancur. documented in this encounter Plan of Treatment Upcoming Encounters Date Type Department Care Team (Late st Contact Info) Description 02/20/2025 9:30 AM EDT Office Visit Endocrinology - [address] [phone] Natalia Wagner PA [address] [place] [address] 03/04/2025 2:30 PM EST Consult Nephrology - [place] [address] [place] [phone] Jean Smith MD [address] [facility] [address] [place] [phone] 04/10/2025 9:15 AM EST Office Visit Bariatric Surgery - [place] [address] [place] [phone] Vira Betancur MD [address] [place] [phone] documented as of this encounter Visit Diagnoses Not on filedocumented in this encounter Care Teams Ocean [employer] Account Manager Relationship Specialty Start Date End Date Kamlesh Smith MD [address] [place] [phone] PCP - General Internal Medicine 05/06/24 documented as of this encounter
--- OUTSIDE RECORDS SUMMARY | 2025-02-04 11:23 | XMS_ITS | Clinical Summary ---
Author Organization [employer] Address [address] [place] [address] [address]t [place] [address] Care Team Providers Care Rn Care Manager Name Role Phone Unavailable Primary Care Provider Unavailabl e Social History Tobacco Use Types Packs/Day Years Used Date Smoking Tobacco: Never Assessed Comments Unknown Sex and Gender Information Value Date Recorded Sex Assigned at Female 02/21/2022 10:30 AM EDT Legal Sex Female 10:30 AM EDT Gender Identity Female 02/21/2022 10:30 AM EDT Sexual Orientation Straight 02/21/2022 10 :30 AM EDT Plan of Treatment Health Maintenance Due Date Last Done Comments CT Colonography 1966 Colonoscopy 1966 Colorectal Cancer Screening 1966 Depression Screening 1966 FIT DNA/Cologuard 1966 FIT 1966 FOBT 1966 Sigmoidoscopy 1966 Disability Screening 1966 Alcohol/Substance Use Screening 1978 Tobacco Screening 1978 DTaP/Tdap/Td Vaccines (1 - Tdap) 1985 Hepatitis B Vaccines (1 of 3 - 19+ 3-dose series) 1985 Pap Smear 10/20/1987 Cervical Cancer Screening 1996 HPV/Cotest 1996 Mammogram 2006 Pneumococcal Vaccine: 50+ Ye ars (1 of 1 - PCV) 2016 Zoster Vaccines (1 of 2) 2016 COVID-19 Vaccine (2023-2 5 season) 2024 Influenza Vaccine (#1) 2024 RSV Patients and Pa tients Aged 60 years or older (1 - 1-dose 75+ series) 2041 HIB Vaccines Aged Out No longer eligi [...] patient's age to complete this topic Meningococcal Vaccine Aged Out No guerrero adrienne eligible based on patient's age to complete this topic RSV under 20 months Aged Out No longe r eligible based on patient's age to complete this topic Rotavirus Vaccines Aged Out No longer eligible based on patient's age to complete this topic
--- OUTSIDE RECORDS SUMMARY | 2025-02-04 11:24 | XMS_ITS | Clinical Summary ---
Author Organization [facility] Address [address] [place] [address] Phone Care Team Providers Care Piping Drafter Name Role Phone Kamlesh Smith MD Primary Care Provider [phone] Allergies Active Allergy Reactions Criticality Noted Date Comments Codeine 10/23/2015 Hydrocodone-Acetaminophen 10/23/2015 Oxycodone-Acetaminophen 09/10/2015 Medications biotin 1 mg tablet Take 1 tablet (1 mg total) by mouth 1 (one) time each day. 02/16/20 19 Active blood-glucose meter kit Check twice a day 02/02/20 22 Active ergocalciferol (VITAMIN D-2) 1,250 mcg (50,000 unit) capsule Take 1 capsule (50,000 Units total) by mouth. 10/07/19 22 Active fluticasone propionate (FLONASE) 50 mcg/actuation nasal spray spray or apply 1 spray inside Nose. 02/02/20 22 Active LORazepam (ATIVAN) 0.5 mg tablet 1 tablet at bedtime as needed Active polyethylene glycol (MIRALAX) 17 gram packet Take 17 g by mouth 1 (one) time each day. 14 each 04/25/19 25 Active meloxicam (MOBIC) 7.5 mg [...] day. 30 packet 3 07/26/19 25 Active lancets (OneTouch Delica Plus Lancet) 33 gauge by Other route 2 (two) times a day. 100 each 11 07/26/19 25 Active glucose blood test strip Use as instructed 100 each 11 07/26/19 25 Active doxepin (SINEquan) 10 mg/mL solution Take 0.5 mL (5 mg total) by mouth at bedtime as needed for sleep. 120 mL 3 09/07/19 25 Active gabapentin (NEURONTIN) 600 mg tablet Take 1 tablet (600 mg total) by mouth 1 (one) time each day. 90 tablet 1 12/03/19 25 Active chlorthalidone (HYGROTON) 25 mg tablet Take 0.5 tablets (12.5 mg total) by mouth 1 (one) time each day. 11/08/19 25 Active carvediloL (COREG) 12.5 mg tablet Take 1 tablet (12.5 mg total) by mouth 2 (two) times a day. 11/08/19 25 Active furosemide (LASIX) 20 mg tablet Take 1 tablet (20 mg total) by mouth 1 (one) time each day. 08/18/19 24 Active albuterol HFA (Ventolin HFA) 90 mcg/actuation inhaler Inhale 2 puffs by mouth every 4 (four) hours if needed for wheezing. 6.7 g 3 12/11/19 25 026 Active tiZANidine (ZANAFLEX) 4 mg tablet Take 1 tablet (4 mg total) by mouth 1 (one) time each day if needed for muscle spasms. 30 tablet 1 01/14/20 25 Active losartan (COZAAR) 100 mg tablet Take 1 tablet (100 mg total) by mouth 1 (one) time each day. 90 each 01/14/20 25 025 Active Mounjaro 12.5 mg/0.5 mL injectionIndic ations:Over weight ADMINISTER 12.5 MG UNDER THE SKIN EVERY 7 DAYS 2 mL 2 01/22/20 25 Active multivitamin tablet Take 1 tablet by mouth 1 (one) time each day. 90 each 1 07/26/19 25 025 losartan (COZAAR) 100 mg tablet Take 1 tablet (100 mg total) by mouth 1 (one) time each day. 90 each 10/04/19 25 025 Discontinued(Re order) tirzepatide (Mounjaro) 12.5 mg/0.5 mL injectionIndic ations:Over weight Inject 0.5 mL (12.5 mg total) under the skin every 7 (seven) days. 2 mL 2 10/31/19 25 025 Discontinued tiZANidine (ZANAFLEX) 4 mg tablet Take 1 tablet (4 mg total) by mouth 1 (one) time each day if needed for muscle spasms. 30 tablet 1 11/28/19 25 025 Discontinued(Re order) Active Problems Problem Noted Date Diagnosed Date Palpitations 04/29/2022 Microcytic anemia 02/04/2022 Nausea and vomiting 01/09/2019 Type 2 diabetes mellitus without complication Overview (01/22/2025): 01/22/25 Regulatory IMO Update Bipolar disorder ([facility] V24, [facility] V28) 09/23 Hypertension 06/02/2017 Hypothyroidism 06/02/2017 Hyperlipidemia 06/02/2017 Anxiety 11/10/2016 Arthritis 11/10/2016 Degenerative joint disease (DJD) of hip 11/11/19 17 Overview (06/14/2023): knees Vitamin D deficiency 09/08/2016 Depression 09/08/2016 Asthma 09/08/2016 Seasonal allergies 06/09/2016 Encounters Date Type Department Care Team Description 01/21/2025 Telephone Bariatric Surgery - [address] [place] [address] Vira Betancur MD 12/10/2024 10:00 AM EDT Consult Internal Medicine - [place] [address] [facility] [address] [place] [address] Kamlesh Smith MD Visit for pre-operative examination (Primary Dx); Primary hypertension; Hypercholesterolemia 11/20/2024 Telephone Internal Medicine - [place] [address] [facility] [address] [place] [address] Kamlesh Smith MD 11/13/2024 Telephone Bariatric Surgery - [place] [address] [facility] [address] [place] [address] Vira Betancur MD 11/08/2024 Telephone Internal Medicine - [place] [address] [facility] [address] [place] [address] Kamlesh Smith MD from Last 3 Months Immunizations Immunization Administration Dates Next Due Influenza Quadravalent, MDCK [...] OTHER; COMMENT: lap band BREAST REDUCTION PROCEDURE: IN BREAST REDUCTION TUBAL LIGATION PROCEDURE: HISTORICAL TUBAL LIGATION ABDOMINAL SURGERY PROCEDURE: HISTORICAL ABDOMINAL SURGERY; COMMENT: abdominoplasty Medical History Medical History Date Comments Anxiety 11/10/2016 DX:Anxiety Arthritis 11/10/2016 DX:Arthritis Asthma 09/08/2016 DX:Asthma Bipolar disorder ([facility]/HCC V2 4, [facility]/HCC V28) 10/12/2017 DX:Bipolar disorder ([facility]) Degenerative joint disease (DJD) of hip 7 DX:Degenerative joint disease (DJD) of hip; COMMENT: knees Depression 09/08/2016 DX:Depression Hyperlipidemia 06/02/2017 DX:Hyperlipidemi a Hypertension 06/02/2017 DX:Hypertension Hypothyroidism 06/02/2017 DX:Hypothyroidis m S/P bariatric surgery 09/08/2016 DX:S/P bar iatric surgery; COMMENT: Lap band Seasonal allergies 06/09/2016 DX:Seasonal a llergies Type 2 diabetes mellitus wit hout complication 10/12/2017 DX:Type 2 diabetes mellitus without complication (HCC) Stroke (CMS/HCC V24, CMS/HCC V28) 2010 Family History Medical History Relation [...] Sign Reading Time Taken Comments Blood Pressure 142/80 12/10/2024 10:08 AM EDT Pulse 56 12/10/2024 10:08 AM EDT Temperature 35.6 C (96.1 F) 12/10/2024 10:08 AM EDT Respiratory Rate 18 05/26/2024 9:36 PM EST Oxygen Saturation 98% 12/10/2024 10:08 AM EDT Inhaled Oxygen Concentration - - Weight 64.7 kg (142 lb 9.6 oz) 12/10/2024 10:08 AM EDT Height 149.9 cm (4' 11 ) 12/10/2024 10:08 AM EDT Body Mass Index 28.8 12/10/2024 10:08 AM EDT Plan of Treatment Upcoming Encounters Date Type Department Care Team (Late st Contact Info) Description 02/20/2025 9:30 AM EDT Office Visit Endocrinology - [address] [address] Natalia Wagner PA [address] [place] [address] 03/04/2025 2:30 PM EST Consult Nephrology - [address] [place] [address] Jean Smith MD [address] [place] [place] [phone] 04/10/2025 9:15 AM EST Office Visit Bariatric Surgery - [place] [address] [place] [address] Vira Betancur MD [address] [place] [phone] Health Maintenance Due Date Last Done Comments [...] 02/14/2023 Colorectal Cancer Screening: Colonoscopy 05/14/2034 05/14/2024 RSV Immunization Adult Patients (1 - 1-dose 75+ series) 2041 Hepatitis C Screening Completed 11/07/2019 HIB Vaccines [...] Essential hypertension, malignant Hypothyroidism, adult Diabetes mellitus ([facility]/HCC V24, CMS/HCC V28) HEPATITIS C SCREENING Routine 11/07/2019 from Last 3 Months or Most Recently Relevant to Health Maintenance Results * (ABNORMAL) Basic metabolic panel (07/23/2024 10:16 AM EDT) Sodium 144 133 - 145 mmol/L LAB CHEMISTRY METHOD 07/23/2024 2:53 PM [facility] Potassium 3.9 3.5 - 5.5 mmol/L LAB CHEMISTRY METHOD 07/23/2024 2:53 PM [facility] Chloride 114(H) 96 - 110 mmol/L LAB CHEMISTRY METHOD 07/23/2024 2:53 PM [facility] CO2 22 21 - 32 mmol/L LAB CHEMISTRY METHOD 07/23/2024 2:53 PM [facility] Anion Gap 8 3 - 11 LAB CHEMISTRY METHOD 07/23/2024 2:53 PM [facility] Glucose 70 70 - 100 mg/dL LAB CHEMISTRY METHOD 07/23/2024 2:53 PM [facility] BUN 20 5 - 25 mg/dL LAB CHEMISTRY METHOD 07/23/2024 2:53 PM [facility] Creatinine 0.99 0.50 - 1.10 mg/dL LAB CHEMISTRY METHOD 07/23/2024 2:53 PM [facility] eGFR 67 >=60 mL/min/1. 73m2 LAB CHEMISTRY METHOD 07/23/2024 2:53 PM [facility] Comment:Calculation based on the Chronic Kidney Disease Epidemiology Collaboration (CKD-EPI) equation refit without adjustment for race. BUN/Creatinine Ratio 20.2 LAB CHEMISTRY METHOD 07/23/2024 2:53 PM [facility] Calcium 9.4 8.5 - 10.5 mg/dL LAB CHEMISTRY METHOD 07/23/2024 2:53 PM EDT [facility] Blood Venous blood specimen / Unknown Venipuncture / Unknown 07/23/2024 10:16 AM EDT 07/23/2024 10:16 AM EDT Kirsty Stephens MD LAB BLOOD ORDERABLES Final Res ult [facility]) [facility] [address] [place] [address], [place] [phone] * External Diabetic Retina Eye Exam Report (06/26/2024) Anatomical Region Laterality Modality Ultrasound Provider [facility] US PROCEDURES Final Result * COLONOSCOPY Anesthesia - MAC; [facility] ENDOSCOPY (05/14/2024 2:37 PM EST) Anatomical Region [...] for surveillance. Narrative 05/14/2024 2:38 PM EST [facility] GI Patient Name: Keshia Gao Procedure Date: [...] retroflexion views. Procedure Code(s): --- Professional --- 95554, Colonoscopy, flexible; with biopsy, single or multiple Diagnosis Code(s): --- Professional --- Z12.11, Encounter for screening for malignant neoplasm of colon D12.3, Benign neoplasm of transverse colon (hepatic flexure or splenic flexure) K57.30, Diverticulosis of large intestine without perforation or abscess without bleeding CPT copyright 2020 [employer]. All rights reserved. The codes documented in this report are preliminary and upon memorandum statement clerk review may be revised to meet current compliance requirements. MD Héctor Sigala MD 05/14/2024 2:38:15 PM This report has been signed electronically.Héctor Martin MD Number of Addenda: 0 Note Initiated On: 05/14/2024 2:20 PM Scope In: Scope Out: Endoscopy Department at [facility] - [address] [place] [phone] Procedure Note Héctor Martin MD - 05/14/2024 [facility] Patient Name: Keshia Gao Procedure Date: [...] retroflexion views. Procedure Code(s): --- Professional --- 44195, Colonoscopy, flexible; with biopsy, singleor multiple Diagnosis Code(s): --- Professional --- Z12.11, Encounter for screening for malignantneoplasm of colon D12.3, Benign neoplasm of transverse colon (hepatic flexure or splenic flexure) K57.30, Diverticulosis of large intestine without perforation or abscess without bleeding CPT copyright 2020 [employer]. All rights reserved. The codes documented in this report are preliminary and upon memorandum statement clerk reviewmay be revised to meet current compliance requirements. MD Héctor Sigala MD 05/14/2024 2:38:15 PM This report has been signed electronically.Héctor Martin MD Number of Addenda: 0 Note Initiated On: 05/14/2024 2:20 PM Scope In: Scope Out: Endoscopy Department at [facility] - [address] [place] [phone] IMPRESSION: - One 2 mm polyp in [...] results. - [facility] 7-[facility] Gabo Hernandez MD GI~PROCEDURE ORDERABLES Final Re sult * Lipid panel with reflex to direct LDL (04/19/2024 7:58 AM EST) Cholesterol 178 0 - 200 mg/dL LAB CHEMISTRY METHOD 04/19/2024 10:[address] [facility] Triglycerides 81 0 - 150 mg/dL LAB CHEMISTRY METHOD 04/19/2024 10:[address] [facility] HDL 109 >=40 mg/dL LAB CHEMISTRY METHOD 04/19/2024 10:[address] [facility] LDL Calculated 53 0 - 100 mg/dL LAB CHEMISTRY METHOD 04/19/2024 10:[address] [facility] VLDL Cholesterol Greg 16.2 mg/dL LAB CHEMISTRY METHOD 04/19/2024 10:[address] [facility] Non HDL Chol. (LDL+VLDL) 69 <145 mg/dL LAB CHEMISTRY METHOD 04/19/2024 10:[address] [facility] Chol/HDL Ratio 1.6 0.0 - 4.4 LAB CHEMISTRY METHOD 04/19/2024 10:[address] [facility] Blood Venous blood specimen / Unknown Venipuncture / Unknown 04/19/2024 7:58 AM EST 04/19/2024 7:58 AM EST Kamlesh Smith MD LAB BLOOD ORDERABLES Final Resul t [facility] [address] [place] [address], [place] [phone] * Microalbumin creatinine urine ratio (04/19/2024 7:58 AM EST) Creatinine, Urine 143.0 mg/dL LAB CHEMISTRY METHOD 04/19/2024 10:30 AM EST [facility] Microalb, Ur 26.2 0.0 - 29.0 mg/L LAB CHEMISTRY METHOD 04/19/2024 10:30 AM EST [facility] Microalb/Creat Ratio 18 <30 mg/g creat LAB CHEMISTRY METHOD 04/19/2024 10:30 AM EST [facility] Urine Urine specimen obtained by clean catch procedure / Unknown Non-blood Collection / Unknown 04/19/2024 7:58 AM EST 04/19/2024 7:58 AM EST us Kamlesh Smith MD LAB URINE ORDERABLES Final Resul t Performing Organization Address City/[facility]/ZIP Co de Phone Number [facility] [address] [place] [address], [place] [phone] * Hemoglobin A1c (04/19/2024 7:58 AM EST) [facility] Hemoglobin A1C 4.9 <6.5 % LAB CHEMISTRY METHOD 04/19/2024 12:25 PM EST [facility] Mean Bld Glu Estim. 94 mg/dL LAB CHEMISTRY METHOD 04/19/2024 12:25 PM EST [facility] Blood Venous blood specimen / Unknown Venipuncture / Unknown 04/19/2024 7:58 AM EST 04/19/2024 7:58 AM EST us Kamlesh Smith MD LAB BLOOD ORDERABLES Final Resul t [facility] [address] [place] [address], [place] [phone] * Hepatitis C Screening (11/07/2019) [facility] Hepatitis C Screening Negative us Twila Lentz MD HEALTH MAINTENANCE Final Result from Last 3 Months or Most Recently Relevant to Health Maintenance Insurance [employer] Member Subscriber Plan / Payer (Ef fective 2022-Present) Name:KESHIA VALIENTE Relation to Subscriber:Self Name:Keshia Valiente Payer ID:[id number] Group ID:[id number] Type:Not on file Address: [address] [facility] [place] [address] Care Teams Piping Drafter Relationship Specialty Start Date End Date Kamlesh Smith MD [address] [place] [id number] PCP - General Internal Medicine 05/06/24
--- OUTSIDE RECORDS SUMMARY | 2025-02-04 11:24 | XMS_ITS | Patient Health Record ---
Author Organization [facility] Address [address] [facility] [address] [place] [address] Support Name Relationship Address Phone Johanna Garza [...] 500 MG TAKE 1 TABLET BY [facility] TWICE DAILY WITH A MEAL; Duration: 30 [...] Status Risk Notes Problem Iron deficiency anemia (75864538) Iron deficiency anemia, unspecified (D50.9) Active confirmed Problem Hypothyroidism (95566851) Hypothyroidism, unspecified (E03.9) Active confirmed Problem Disorder due to type 2 diabetes mellitus (530142685) Type 2 diabetes mellitus with unspecified complications (E11.8) Active confirmed Problem Morbid obesity (disorder) (663879293) Morbid (severe) obesity due to excess calories (E66.01) Active confirmed Problem Generalized anxiety disorder (73010426) Generalized anxiety disorder (F41.1) Active confirmed Problem Gastro-esophageal reflux disease without esophagitis (170038289) Gastro-esophagea l reflux disease without esophagitis (K21.9) Active confirmed Problem Essential hypertension (45659215) Essential (primary) hypertension (I10) Active confirmed Plan Of Treatment No Information Insurance Providers Payer Name Payer Address Payer Phone Subscriber Number Group Number Insured Name Patient Relationship to Insured Coverage Start Date Coverage End Date Medicare [address] [place] [id number] Johanna Garza Self - patient is the insured Medicaid of [place] [address] [place] [address] [id number] Johanna Garza Self - patient is the insured Medical (General) History Medical History History ICD Code GERD hypothyroidism hypertension generalized anxiety disorder Surgical History Surgery Date(Month/Year) lap band by Dr. Betancur gastric bypass by Dr. Betancur left ankle surgery 02/2021
== END 2025-02-04 10:44 | disposition home or self-care (01) ==
LOC: HO.HKAS 09:57
PROVIDERS: PCP Internal Medicine; Visit Provider Internal Medicine Nephrology
DX: N18.31 Chronic kidney disease, stage 3a (principal); R09.89 Other specified symptoms and signs involving the circulatory and respiratory systems
CPT/HCPCS: 99214

== ENCOUNTER → 2025-02-04 09:56 | Outpatient (BNVA) | payer OTHER, SELFPAY | PROVIDERS: PCP Internal Medicine; Visit Provider Internal Medicine Nephrology | DX: N18.31 Chronic kidney disease, stage 3a (principal); R09.89 Other specified symptoms and signs involving the circulatory and respiratory systems | CPT/HCPCS: 99212 ==